=== PATIENT | female | born 1975 ===

== ENCOUNTER 2019-12-06 09:04 | Emergency (ER) | payer MEDICARE, OTHER ==
[~2019-12-06] VITALS: Ht 154.9 cm; Wt 88.7 kg
[2019-12-06 09:17] VITALS: BP 133/91; Ht 154.9 cm; Wt 88.7 kg
[2019-12-06] MEDS ORDERED: ABILIFY10 MG PO (09:18)
[2019-12-06] MEDS ORDERED: ZOLOFT100 MG PO (09:19)
[2019-12-06] MEDS ORDERED: LEVOXYL100 MCG PO (09:19)
[2019-12-06] MEDS ORDERED: LIPITOR40 MG PO (09:19)
[2019-12-06] MEDS ORDERED: CATAPRES0.1 MG PO (09:20)
[2019-12-06 10:36] LABS: BASOPHILS 0 % (0-2); EOSINOPHILS 0 % (0-7); HEMATOCRIT 45.1 % (36.0-48.0); IMMATURE GRANULOCYTES 0.3 % (0-5); MCH 28.7 pg (26.0-34.0); MCHC 33.3 g/dL (31.0-37.0); MCV 86.2 fL (80.0-100.0); MEAN PLATELET VOLUME 8.8 fL (7.4-10.4); MONOCYTES 6.5 % (2-11); NEUTROPHILS 64.2 % (40-80); PLATELET COUNT 250 10x3/uL (130-400); RBC 5.23 10x6/uL (4.00-5.40); RDW 14.5 % (11.5-14.5); WBC 6.5 10x3/uL (4.8-10.8)
[2019-12-06 10:50] LABS: ANION GAP 15.3 mmol/L (8-16); CALCIUM 9.2 mg/dL (8.5-10.1); CARBON DIOXIDE 23.2 mmol/L (21.0-32.0); CREATININE - SERUM 1.1 mg/dL (0.6-1.3); POTASSIUM - SERUM 3.5 mmol/L (3.5-5.1)
[2019-12-06 11:06] LABS: ALBUMIN 3.9 g/dL (3.4-5.0); BILIRUBIN - TOTAL 0.47 mg/dL (0.2-1.3); PROTEIN - SERUM 7.4 g/dL (6.4-8.2); THYROID STIMULATING HORMONE 1.02 uIU/mL (0.36-3.74)
[2019-12-06] MEDS ORDERED: VISTARIL50 MG PO (11:19)
[2019-12-06] MEDS ORDERED: MELATONIN5 M3 PO (11:19)
== END 2019-12-06 11:28 | disposition home or self-care (01) ==
LOC: D.ER 09:04
PROVIDERS: Family Medicine
DX: F41.9 Anxiety disorder, unspecified (principal); I50.9 Heart failure, unspecified

== ENCOUNTER 2019-12-07 12:13 | Observation (INO) | payer MEDICARE, OTHER ==
[2019-12-07] VITALS (9 sets, daily range): BP systolic 101–144; BP diastolic 54–105; Ht 154.9 cm; Wt 86.4 kg
[~2019-12-07] VITALS: Ht 154.9 cm; Wt 86.4 kg
[~2019-12-07 12:13] MED LIST: ABILIFY10 MG PO; CATAPRES0.1 MG PO; LEVOXYL100 MCG PO; LIPITOR40 MG PO; MELATONIN5 M3 PO; VISTARIL50 MG PO; ZOLOFT100 MG PO
[2019-12-07 12:54] LABS: BASOPHILS 0 % (0-2); EOSINOPHILS 0 % (0-7); HEMATOCRIT 40.9 % (36.0-48.0); HEMOGLOBIN 13.9 g/dL (12-16); IMMATURE GRANULOCYTES 0.2 % (0-5); LYMPHOCYTES 30.7 % (15-50); MCH 28.7 pg (26.0-34.0); MCV 84.3 fL (80.0-100.0); MEAN PLATELET VOLUME 8.9 fL (7.4-10.4); MONOCYTES 6.5 % (2-11); NEUTROPHILS 62.6 % (40-80); PLATELET COUNT 272 10x3/uL (130-400); RBC 4.85 10x6/uL (4.00-5.40); RDW 14.6 % (11.5-14.5); WBC 6.7 10x3/uL (4.8-10.8)
[2019-12-07 13:10] LABS: ANION GAP 13.1 mmol/L (8-16); CALCIUM 9.1 mg/dL (8.5-10.1); CARBON DIOXIDE 23.1 mmol/L (21.0-32.0); CREATININE - SERUM 1.2 mg/dL (0.6-1.3); POTASSIUM - SERUM 3.2 mmol/L (3.5-5.1)
[2019-12-07 13:14] LABS: BILIRUBIN - TOTAL 0.48 mg/dL (0.2-1.3); MAGNESIUM - SERUM 1.9 mg/dL (1.8-2.4); PROTEIN - SERUM 7.2 g/dL (6.4-8.2)
--- NOTE | 2019-12-07 13:35 | NUR ---
SPOKE WITH SOLIS AT POISON CONTROL. 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 IF PT DEVELOPS ANY OF THE ABOVE SYSMTOMS, IT IS RECCOMENDED PT RECEIVE AN EKG AND CARDIAC MONITORING.
[2019-12-07 14:03] LABS: UDS - AMPHET NEGATIVE QUAL (NEGATIVE); UDS - BARB NEGATIVE QUAL (NEGATIVE); UDS - BENZO NEGATIVE QUAL (NEGATIVE); UDS - COCAINE NEGATIVE QUAL (NEGATIVE); UDS - OPIATE NEGATIVE QUAL (NEGATIVE); UDS - PCP NEGATIVE QUAL (NEGATIVE); UDS - THC NEGATIVE QUAL (NEGATIVE)
[2019-12-07 14:05] LABS: BILIRUBIN NEGATIVE (NEGATIVE); KETONE NEGATIVE (NEGATIVE); NITRITE NEGATIVE (NEGATIVE); UROBILINOGEN NORMAL (NORMAL)
--- NOTE | 2019-12-07 14:05 | NUR ---
DR MORALES NOTIFIED AND REVIEWED PT'S BEHAVIOR AND ASSESSMENT. PATIENT IS A HIGH RISK. SITTER ORDERED AND AT BEDSIDE. PATIENT REFUSES TO COMPLETE SAFETY PLAN. PATIENT STATES SHE IS SUICIDAL AND HOMICIDAL. PATIENT IS HALLUCINATING AND HAVING COMMAND HALLUCINATIONS TO KILL HERSELF AND KILL OTHER PEOPLE. PATIENT REFUSED SUICIDE RESOURCES.
--- NOTE | 2019-12-07 19:14 | NUR ---
AWAKE ALERT CALM NO DISTRESS NOTED SITTER AT BEDSIDE. PHARMACY NOTIFIED NEED FOR NICODERM PATCH
[2019-12-07 19:39] LABS: CKMB 0.9 U/L (0.0-3.6); CREATINE KINASE 149 UL (21-215); TROPONIN-I < 0.017 ng/mL (0.000-0.060)
[2019-12-07 19:52] LABS: APTT 29.9 SECONDS (22.8-39.4); INR 1.05 (0.85-1.17); PROTIME 13.6 SECONDS (11.6-15.0)
[2019-12-08 00:31] VITALS: BP 109/70
[2019-12-08 01:32] VITALS: BP 114/71
[2019-12-08 02:03] LABS: CKMB 1.2 U/L (0.0-3.6); CREATINE KINASE 200 UL (21-215); TROPONIN-I < 0.017 ng/mL (0.000-0.060)
[2019-12-08 02:32] VITALS: BP 98/60
--- NOTE | 2019-12-08 03:00 | NUR ---
PT ACCEPTED AT [facility], DR. MELISSA. REPORT CALLED TO [facility]. UNABLE TO SEND PT UNTIL 0630 PER [facility] REQUEST. PT STABLE AT THIS TIME. SITTER AT BEDSIDE. WILL CONTINUE TO MONITOR.
[2019-12-08 03:29] VITALS: BP 110/68
--- NOTE | 2019-12-08 03:45 | NUR ---
PT REQUESTING FOOD AT THIS TIME. SITTING HIGH FOWLERS, NO SIGNS DISTRESS NOTED. TURKEY SANDWICH, PUDDING AND ICE WATER PROVIDED. PT DENIES FURTHER NEEDS.
--- NOTE | 2019-12-08 04:54 | NUR ---
MAIKOL WITH POISON CONTROL CALLED AND SINCE PATIENT MEDICALLY CLEARED. POISON CONTROL WILL NO LONGER BE MAKING CONTACT. STAFF TO CALL ONLY IF NEEDED
--- NOTE | 2019-12-08 07:07 | NUR ---
PATIENT HAS DENIED ANY SUICIDAL IDEATIONS SINCE SHE IS GOING TO [place] TO GET SOME HELP. SITTER AT BEDSIDE FOR CONTINUED LINE OF SIGHT OBSERVATION.
[2019-12-08 08:59] VITALS: BP 105/54
== END 2019-12-08 08:45 | disposition other institution (70) ==
LOC: D.ER 12:13 → OBSVTIME 18:24 → D.EDHOLD 18:24
PROVIDERS: Family Medicine; ADMIT Family Medicine; ATTEND Family Medicine
DX: R45.851 Suicidal ideations (principal); T43.222A Poisoning by selective serotonin reuptake inhibitors, intentional self-harm, initial encounter; T43.592A Poisoning by other antipsychotics and neuroleptics, intentional self-harm, initial encounter; F44.81 Dissociative identity disorder; F32.9 Major depressive disorder, single episode, unspecified; E03.9 Hypothyroidism, unspecified; F17.203 Nicotine dependence unspecified, with withdrawal; E87.6 Hypokalemia